=== PATIENT | female | born 1995 | race Caucasian/White ===

== ENCOUNTER 2020-03-04 14:29 | Outpatient (REF) | payer MEDICAID, SELFPAY | END 2020-03-04 14:30 | disposition home or self-care (01) | LOC: HO.LAB 14:29 | PROVIDERS: Visit Provider Internal Medicine | DX: Z20.822 Contact with and (suspected) exposure to COVID-19 (principal) | CPT/HCPCS: 36415; C9803; U0003 ==

== ENCOUNTER 2020-03-23 14:27 | Outpatient (REF) | payer MEDICAID, SELFPAY | END 2020-03-23 14:28 | disposition home or self-care (01) | LOC: HO.LAB 14:27 | PROVIDERS: Visit Provider Internal Medicine | DX: Z20.822 Contact with and (suspected) exposure to COVID-19 (principal) | CPT/HCPCS: 36415; C9803; U0003; U0005 ==

== ENCOUNTER 2022-12-08 15:43 | Emergency (ER) | payer OTHER, SELFPAY ==
--- NOTE | ~2022-12-08 | CT_ITS ---
EXAMINATION: CT head/brain wo IV con CLINICAL INFORMATION: Reason for Exam headache, dizziness COMPARISON: None. TECHNIQUE: Contiguous axial imaging was performed from the skull base to vertex without intravenous contrast. Sagittal and coronal reformatted images were obtained. This CT examination was performed using dose optimization techniques as appropriate, variously including the following: * Automated exposure control * Adjustment of mA and/or kV according to patient size (this includes techniques or standardized protocols for targeted exams where dose is matched to indication/reason for exam; i.e. extremities or head) Use of iterative reconstruction technique DLP: 758.72 mGy-cm FINDINGS: No acute osseous or soft tissue abnormality. The mastoid air cells and visualized portions of the paranasal sinuses are well aerated. There is no evidence of acute intracranial hemorrhage or territorial infarction. No abnormal mass effect or midline shift is seen. Berrios to white matter differentiation is well preserved. No extra-axial fluid collections are identified. No hydrocephalus. No significant volume loss. There is no abnormal attenuation within the brain parenchyma. CT/CT head/brain wo IV con IMPRESSION: No acute intracranial abnormality including hemorrhage, mass effect, hydrocephalus, or acute territorial edematous infarction.
--- NOTE | 2022-12-08 15:45 | ECG_ITS ---
Test Reason : CHEST PAIN Blood Pressure : / mmHG Vent. Rate : 079 BPM Atrial Rate : 079 BPM P-R Int : 158 ms QRS Dur : 084 ms QT Int : 392 ms P-R-T Axes : 048 027 045 degrees QTc Int : 449 ms Normal sinus rhythm with sinus arrhythmia Normal ECG No previous ECGs available Referred By: Generic ED Physician Electronically Signed By:RONAK BRICEÑO MD
--- NOTE | 2022-12-08 15:50 | MHC.EDTECH ---
Patient ekg taken in triage and was read by Provider .
[2022-12-08 15:53] VITALS: BP 140/78; PULSE 84; RESP 20; TEMP 36.2; O2SAT 100; BMI 38.1
--- NOTE | 2022-12-08 15:53 | ED_ITS ---
HPI - General Adult General Chief complaint: Chest Pain Stated complaint: chest pain,dizziness Time Seen by Provider: 12/08/22 18:38 Source: patient Mode of arrival: ambulatory Limitations: no limitations History of Present Illness HPI narrative: 27 year old female with PMH of anemia per patient, presents for ongoing dizziness and chest pressure. She went to [facility] ED twice for this, the first time was 12/04. Patient reports she had an elevated D dimer but negative CTA scan of the chest and was discharged with meclizine. She states this has not been helping. She states her dizziness has been going on for 1 week and occurs constantly throughout the day with movements. She denies vomiting or syncope. She denies unsteadiness, weakness, vision changes. She reports nausea and headache frequently. She states her chest pressure is not worsening or improving and occurs sporadically during the day. She denies difficulty breathing, leg edema, palpitations, or cough. She denies being in a long car ride or plane recently and denies OCPs. Patient states she does not drink much during the day, only a few sips here and then and occasional slushies. Patient reports that she tried to follow-up with her PCP who instructed her to go to a different ER Related Data Previous Rx's Medication Instructions Recorded amoxicillin 500 mg tablet 500 mg PO TID #30 tabs 12/08/22 Allergies Allergy/AdvReac Type Severity Reaction Status Date / Time No Known Allergies Allergy Verified 12/08/22 15:55 Review of Systems 2 Constitutional: Constitutional: Denies chills, Denies fever(s) and Reports headache(s) Eyes: Eyes: Denies blurry vision, Denies change in vision, Denies floaters and Denies seeing flashes ENT: Reports Normal hearing present, Reports vertigo, Reports dizziness, Denies otalgia and Reports headache(s) Cardiovascular: Cardiovascular: Reports chest pain, Denies Epigastric Pain, Denies syncope, Denies leg edema, Reports lightheadedness, Denies Loss of Consciousness, Denies radiating jaw, neck or arm pain and Denies dyspnea Respiratory: Respiratory: Denies cough and Denies dyspnea Gastrointestinal: Gastrointestinal: Denies abdominal pain, Denies diarrhea, Reports nausea and Denies vomiting Neurologic: Reports Normal hearing present, Reports vertigo, Reports dizziness, Denies syncope and Reports headache(s) [facility] Social History Social History Alcohol intake: current Smoked in Last 30 Days: No Use of substances other than those prescribed or required for medical reasons: No Advance Directives: No Advance Directives Information Provided: No Physical Exam ED Vital Signs: Vital Signs - 24 hr 12/08/22 15:53 12/08/22 18:33 12/08/22 19:49 Temperature 97.2 F Pulse Rate 84 77 77 Respiratory Rate 20 20 13 Blood Pressure 140/78 H 123/65 118/73 Pulse Oximetry 100 100 98 Oxygen Delivery Method Room Air Room Air Room Air BMI result Body Mass Index 38.1 Const General: cooperative, comfortable and no acute distress Orientation/consciousness: patient oriented x3 Limitations: no limitations HENMT Head: Yes normocephalic and Yes atraumatic Ears: hearing grossly normal bilaterally, external ears normal, right TM abnormal (fluid behind TM) and EAC's normal Throat: Yes posterior oropharynx normal Resp Effort & Inspection: normal respiratory effort and able to speak in complete sentences Auscultation: clear to auscultation bilaterally Cardio Rate: regular rate Rhythm: regular rhythm Neuro General: patient oriented x3 Cranial nerves: Yes CN's II-XII intact bilaterally and Yes Normal hearing present Motor exam (neuro): 5/5 motor strength present throughout Extrem General: Yes normal to inspection and No edema Course Course Course Narrative: This is an RME: Additional HPI, ROS, PE not included below will be deferred to primary provider. 27 year old female presents w/ cp, headache, near syncopal episodes x1 week. Was seen at [facility] 2X w/ negative workups. Plan- labs, urine, ekg Reevaluation(s) Reevaluation #1: Patient reports significant improvement in her symptoms. CT scan was unremarkable. Will discharge the patient with Reglan and she will follow-up with her PCP Time: 22:14 Medications Administered Discontinued Medications Generic Name Dose Route Start Last Admin Trade Name Freq PRN Reason Stop Dose Admin Al Hydroxide/Mg Hydroxide 30 ml 12/08/22 20:06 12/08/22 20:29 Magnesium Hydrox/Alum Hydrox 30 Ml Oral.Susp PO 12/08/22 20:07 30 ml ONCE ONE Administration Sodium Chloride 1,000 mls @ 999 mls/hr 12/08/22 19:45 12/08/22 20:50 Ns IV 12/08/22 20:45 Infused .Q1H1M STEPHANIE Infusion Ketorolac Tromethamine 30 mg 12/08/22 19:43 12/08/22 19:49 Ketorolac Tromethamine 30 Mg/Ml Vial IVPUSH 12/08/22 19:44 30 mg ONCE ONE Administration Lidocaine HCl 15 ml 12/08/22 20:06 12/08/22 20:29 Lidocaine Hcl Viscous 2 % 15 Ml Solution MUCOUS MEM 12/08/22 20:07 15 ml ONCE ONE Administration Metoclopramide HCl 10 mg 12/08/22 19:43 12/08/22 19:49 Metoclopramide Hcl 10 Mg/2 Ml Vial IVPUSH 12/08/22 19:44 10 mg ONCE ONE Administration Ondansetron HCl 4 mg 12/08/22 20:06 12/08/22 20:29 Ondansetron Odt 4 Mg Tab.Rapdis TRANSLINGU 12/08/22 20:07 4 mg ONCE ONE Administration Medical Decision Making Medical Decision Making [facility] Narrative: 27-year-old female presents for evaluation of headache, chest pressure. She reports that she has had a large negative cardiac workup at [facility] including CT angiography of the chest. Her EKG and labs today are unremarkable. She describes her chest pain as ?heartburn symptoms. ? we will treat with GI cocktail. The patient has been trying to follow-up as an outpatient but her doctor appears to seen to concern for acute issues. I discussed the patient that I have a low suspicion for intracranial pathology as her neurologic exam is benign but offered a CT scan which she agreed to undergo. She does have evidence of acute right otitis media which could explain some of her symptoms. Differential Diagnosis Differential Diagnoses: The differential diagnosis associated with the presentation includes peripheral vertigo central vertigo less likely anxiety dehydration ACS less likely Lab Data [facility] Lab Attestation statement: I reviewed the patient's lab results. No leukocytosis or anemia. Normal platelet count. No electrolyte abnormalities 12/08/22 16:03 12/08/22 16:03 Labs: Lab Results 12/08/22 Range/Units 16:03 WBC 7.6 (4.8-10.8) X10*3/uL RBC 4.96 (4.20-5.50) X10*6/uL Hgb 12.6 (12.0-16.0) g/dl Hct 39.9 (37.0-47.0) % MCV 80.4 (80.0-98.0) fL MCH 25.4 L (27.0-33.0) pg MCHC 31.6 (31.0-35.0) g/dl RDW 14.9 (11.0-16.0) % Plt Count 313 (160-400) X10*3/uL MPV 10.4 (9.4-12.3) fL Immature Gran % (Auto) 0.3 (0.0-0.4) % Neut % (Auto) 55.5 (45-73) % Lymph % (Auto) 35.5 (20-40) % [place] % (Auto) 6.4 (2-11) % Eos % (Auto) 2.0 (0-4) % Baso % (Auto) 0.3 (0-2) % Lymph # (Auto) 2.7 (1.2-4.9) X10*3/uL [place] # (Auto) 0.5 (0.1-1.2) X10*3/uL Eos # (Auto) 0.2 (0.0-0.4) X10*3/uL Baso # (Auto) 0.0 (0.0-0.2) X10*3/uL Abs Immat Gran (auto) 0.02 (0.00-0.03) X10*3/uL Absolute Neuts (auto) 4.3 (2.0-8.3) x10*3/uL Absolute Nucleated RBC 0.000 (0.0-0.012) X10*3/uL Nucleated RBC % (auto) 0.0 (0.0-0.2) /100WBC Sodium 139 (135-145) mmol/L Potassium 3.7 (3.3-5.1) mmol/L Chloride 108 (96-108) mmol/L Carbon Dioxide 26 (22-29) mmol/L Anion Gap 9 L (12-20) BUN 11 (9-16) mg/dL Creatinine 0.72 (0.5-1.4) mg/dL Estim Creat Clear Calc 161.6 Estimated GFR > 60 Random Glucose 94 (60-115) mg/dL Calcium 9.9 (8.4-10.2) mg/dL Magnesium 2.1 (1.6-2.6) mg/dL Total Bilirubin 0.3 (0.0-1.0) mg/dL AST 71 H (5-31) U/L ALT 116 H (0-31) U/L Alkaline Phosphatase 79 (39-117) U/L Troponin I High Sens < 2.7 (<3.5-17.0) ng/L Total Protein 7.7 (6.5-8.0) g/dL Albumin 4.0 (3.5-5.0) g/dL Beta HCG, Quant < 2 mIU/mL Independent Interpretation I performed an independent interpretation of an: EKG (Normal sinus rhythm with sinus arrhythmia. Ventricular rate 79 beats per minute. No ectopy or ischemic changes) and CT Scan (Agree with Radiology, no acute intracranial abnormality) Radiology Impression Discussion of test interpretation with radiology: I have reviewed the radiologist's reading. (No acute intracranial abnormality) Discharge Plan Discharge Clinical Impression: Otitis media, Acute headache, Chest pain Patient Disposition: Home, Self-Care Instructions: Chest Pain (ED), Acute Headache (ED) Additional Instructions: Your workup in the emergency department today was reassuring. You do appear to have an ear infection on the right. Take the antibiotics as prescribed. Follow-up with your primary doctor Hydrate well Prescriptions: New amoxicillin 500 mg tablet 500 mg PO TID Qty: 30 0RF
[2022-12-08 16:07] LABS: MANUAL DIFF FLAG NO
[2022-12-08 16:08] LABS: Basophils Percent Auto 0.3 % (0-2); Eosinophils Absolute Auto 0.2 X10*3/uL (0.0-0.4); Hematocrit 39.9 % (37.0-47.0); Hemoglobin 12.6 g/dl (12.0-16.0); Imm Gran Abs Auto 0.02 X10*3/uL (0.00-0.03); Imm Gran Pct Auto 0.3 % (0.0-0.4); Lymphocytes Absolute Auto 2.7 X10*3/uL (1.2-4.9); Lymphocytes Percent Auto 35.5 % (20-40); Mean Corpuscular HGB Conc 31.6 g/dl (31.0-35.0); Mean Corpuscular Hemoglobin 25.4 pg (27.0-33.0); Mean Corpuscular Volume 80.4 fL (80.0-98.0); Mean Platelet Volume 10.4 fL (9.4-12.3); Monocytes Absolute Auto 0.5 X10*3/uL (0.1-1.2); Monocytes Percent Auto 6.4 % (2-11); Neutrophils Absolute Auto 4.3 x10*3/uL (2.0-8.3); Neutrophils Percent Auto 55.5 % (45-73); Platelet Count 313 X10*3/uL (160-400); Red Blood Count 4.96 X10*6/uL (4.20-5.50); Red Cell Distribution Width 14.9 % (11.0-16.0); White Blood Count 7.6 X10*3/uL (4.8-10.8)
[2022-12-08 16:30] LABS: Alanine Aminotransferase 116 U/L (0-31); Alkaline Phosphatase 79 U/L (39-117); Anion Gap 9 (12-20); Aspartate Amino Transferase 71 U/L (5-31); Bilirubin Total 0.3 mg/dL (0.0-1.0); Blood Urea Nitrogen 11 mg/dL (9-16); Calcium 9.9 mg/dL (8.4-10.2); Carbon Dioxide 26 mmol/L (22-29); Chloride 108 mmol/L (96-108); Creatinine Clr Calc Pharmacy 161.6; Estimated Glomerular Filt Rate > 60; Glucose Random 94 mg/dL (60-115); HCG Quantitative < 2 mIU/mL; Magnesium 2.1 mg/dL (1.6-2.6); Potassium 3.7 mmol/L (3.3-5.1); Sodium 139 mmol/L (135-145); Total Protein 7.7 g/dL (6.5-8.0); Troponin-I High Sensitivity < 2.7 ng/L (<3.5-17.0)
[2022-12-08 18:33] VITALS: BP 123/65; PULSE 77; RESP 20; O2SAT 100
--- NOTE | 2022-12-08 19:37 | PC.NURSE ---
care assumed of patient at this time
[2022-12-08 19:49] VITALS: BP 118/73; PULSE 77; RESP 13; O2SAT 98
[2022-12-08] MEDS: Metoclopramide HCl 10 MG/2 ML VIAL IVPUSH (19:49)
[2022-12-08] MEDS: 0.9 % Sodium Chloride 1,000 ML 999 ML IV (19:49)
[2022-12-08] MEDS: Ketorolac Tromethamine 30 MG/ML VIAL IVPUSH (19:49)
[2022-12-08] MEDS: Ondansetron ODT 4 MG TAB.RAPDIS TRANSLINGU (20:29)
[2022-12-08] MEDS: Lidocaine HCl Viscous 2 % 15 ML SOLUTION MUCOUS MEM (20:29)
[2022-12-08] MEDS: Magnesium Hydrox/Alum Hydrox 30 ML ORAL.SUSP PO (20:29)
[2022-12-08 22:00] VITALS: BP 104/51; PULSE 75; RESP 14; O2SAT 98
== END 2022-12-08 22:25 | disposition home or self-care (01) ==
PROVIDERS: Physician Assistant; Emergency Provider Student in an Organized Health Care Education/Training Program; PCP Pediatrics
DX: R07.89 Other chest pain (principal); H66.93 Otitis media, unspecified, bilateral; R42 Dizziness and giddiness; R51.9 Headache, unspecified; R11.2 Nausea with vomiting, unspecified; Z79.899 Other long term (current) drug therapy
CPT/HCPCS: 36415; 70450; 80053; 83735; 84484; 84702; 85025; 93005; 96361; 96374; 96375; 99284; 99285; J1885; J2765

== ENCOUNTER 2023-04-17 23:29 | Observation (INO) | payer OTHER, SELFPAY ==
--- NOTE | ~2023-04-17 | CT_ITS ---
EXAMINATION: CT ABDOMEN AND PELVIS WITH CONTRAST CLINICAL INFORMATION: Periumbilical/right lower quadrant pain. COMPARISON: None available. TECHNIQUE: Multidetector volumetric images were obtained from the superior aspect of the liver through the pubic symphysis following administration 85 mL of Omnipaque 350 intravenous contrast. Sagittal and coronal reformatted images were obtained on the technologist's workstation. Oral contrast: No This CT examination was performed using dose optimization techniques as appropriate, variously including the following: *Automated exposure control *Adjustment of mA and/or kV according to patient size (this includes techniques or standardized protocols for targeted exams where dose is matched to indication/reason for exam; i.e. extremities or head) *Use of iterative reconstruction technique DLP: 866 mGy-cm FINDINGS: LUNG BASES: The visualized lung bases are unremarkable. LIVER, GALLBLADDER, AND BILIARY TREE: The liver is of diminished attenuation. No focal liver lesions are seen. There is no intrahepatic biliary duct dilatation. There has been a prior cholecystectomy. PANCREAS: Unremarkable. SPLEEN: Unremarkable. ADRENAL GLANDS: Unremarkable. KIDNEYS AND URETERS: The kidneys are normal in size, shape, and attenuation. No hydronephrosis, hydroureter, or calculi seen. No perinephric stranding. BLADDER: Unremarkable. GASTROINTESTINAL TRACT: The small and large bowel are unremarkable. The appendix is dilated up to 1.3 cm with a proximal appendicolith and ABDOMINAL WALL: No significant hernia is appreciated. LYMPH NODES: Normal. VASCULAR: Unremarkable. PELVIC VISCERA: Unremarkable. OSSEOUS STRUCTURES: There is mild lower lumbar disc degenerative change. CT/CT abdomen pelvis w IV con IMPRESSION: 1. Findings consistent with acute appendicitis. 2. Hepatic steatosis. Fleischner guidelines were followed.
[2023-04-17 23:47] VITALS: BP 144/86; PULSE 92; RESP 18; TEMP 36.6; O2SAT 98; BMI 38.1
[2023-04-17] MEDS: Ondansetron ODT 4 MG TAB.RAPDIS TRANSLINGU (23:54)
[2023-04-18] VITALS (23 sets, daily range): BP systolic 100–129; BP diastolic 45–77; PULSE 62–89; RESP 11–21; TEMP 36.1–37.2; O2SAT 93–100; BMI 39.0
[2023-04-18 00:38] LABS: MANUAL DIFF FLAG NO
[2023-04-18 00:45] LABS: Basophils Percent Auto 0.2 % (0-2); Eosinophils Percent Auto 0.1 % (0-4); Hematocrit 41.9 % (37.0-47.0); Hemoglobin 13.3 g/dl (12.0-16.0); Imm Gran Abs Auto 0.09 X10*3/uL (0.00-0.03); Imm Gran Pct Auto 0.5 % (0.0-0.4); Lymphocytes Absolute Auto 2.4 X10*3/uL (1.2-4.9); Lymphocytes Percent Auto 14.3 % (20-40); Mean Corpuscular HGB Conc 31.7 g/dl (31.0-35.0); Mean Corpuscular Hemoglobin 26.5 pg (27.0-33.0); Mean Corpuscular Volume 83.6 fL (80.0-98.0); Mean Platelet Volume 9.7 fL (9.4-12.3); Monocytes Absolute Auto 0.6 X10*3/uL (0.1-1.2); Monocytes Percent Auto 3.6 % (2-11); Neutrophils Absolute Auto 13.5 x10*3/uL (2.0-8.3); Neutrophils Percent Auto 81.3 % (45-73); Platelet Count 333 X10*3/uL (160-400); Red Blood Count 5.01 X10*6/uL (4.20-5.50); Red Cell Distribution Width 14.9 % (11.0-16.0); White Blood Count 16.6 X10*3/uL (4.8-10.8)
[2023-04-18 01:09] LABS: Alanine Aminotransferase 84 U/L (0-31); Albumin Level 4.1 g/dL (3.5-5.0); Alkaline Phosphatase 89 U/L (39-117); Anion Gap 12 (12-20); Aspartate Amino Transferase 40 U/L (5-31); Bilirubin Total 0.5 mg/dL (0.0-1.0); Blood Urea Nitrogen 10 mg/dL (9-16); Calcium 9.5 mg/dL (8.4-10.2); Carbon Dioxide 23 mmol/L (22-29); Chloride 109 mmol/L (96-108); Creatinine Clr Calc Pharmacy 159.5; Estimated Glomerular Filt Rate > 60; Glucose Random 144 mg/dL (60-115); HCG Quantitative < 2 mIU/mL; Lipase 16 U/L (8-78); Potassium 4.2 mmol/L (3.3-5.1); Sodium 140 mmol/L (135-145); Total Protein 8.1 g/dL (6.5-8.0)
[2023-04-18 01:41] LABS: Appearance Urine Clear; Color Urine Yellow; Glucose Urine UA Negative (Negative); Leukocyte Esterase Urine Negative (Negative); Nitrite Urine Negative (Negative); PH 8.5 (5.0-9.0); Specific Gravity - Urine 1.025 (1.005-1.025); UMIC TRIGGER UACC YES; Urine Blood Small (1+) (Negative); Urine Ketones 15 mg/dL (Negative); Urine Protein Trace mg/dL (Neg-Trace)
[2023-04-18 01:47] LABS: Bacteria Urine Trace (None Seen); Hyaline Casts Urine 0-2 /LPF (0-2); WBC Urine 0-5 /HPF (0-5)
--- NOTE | 2023-04-18 02:56 | MHC.EDTECH ---
THIS PCT JUST ASSUMED CARE OF PATIENT ,VITALS ,PATIENT RESTING IN BED .
[2023-04-18] MEDS: ondansetron HCL 4 MG/2 ML VIAL IVPUSH (03:47)
[2023-04-18] MEDS: Ketorolac Tromethamine 30 MG/ML VIAL 15 MG IVPUSH (03:47)
[2023-04-18] MEDS: 0.9 % Sodium Chloride 1,000 ML 999 ML IV (03:49)
[2023-04-18] MEDS: iohexoL 350 MG/ML 100 ML INFUS..BTL 85 ML IV (03:58)
--- NOTE | 2023-04-18 04:12 | ED.NAVMDI ---
HPI - Nausea/Vomiting/Diarrhea General Chief complaint: Nausea/Vomiting/Diarrhea Stated complaint: gen med Time Seen by Provider: 04/18/23 02:35 Source: patient and family Mode of arrival: ambulatory History of Present Illness HPI Narrative: 27-year-old female without significant past medical history but is status post cholecystectomy 2 years ago and presents with periumbilical/right lower quadrant pain that has been associated with vomiting as well as diarrhea that started at approximately 19:00 this evening. Patient reports chills. Related Data Previous Rx's Medication Instructions Recorded amoxicillin 500 mg tablet 500 mg PO TID #30 tabs 12/08/22 Allergies Allergy/AdvReac Type Severity Reaction Status Date / Time No Known Allergies Allergy Verified 04/17/23 23:46 Review of Systems Review of Systems: Pertinent positives and negatives as stated in HPI PMFSH Past Medical History Source: nursing notes reviewed Social History Social History Alcohol intake: current Advance Directives: No Advance Directives Information Provided: No Physical Exam Vital Signs: Vital Signs: Last Vital Signs Temp 98.9 F 04/18/23 04:20 Pulse 89 04/18/23 04:20 Resp 16 04/18/23 04:20 BP 113/66 04/18/23 04:20 Pulse Ox 98 04/18/23 04:20 O2 Del Method Room Air 04/18/23 04:20 BMI result Body Mass Index 38.1 VITAL SIGNS: Reviewed. GENERAL: Elevated BMI, Well developed, well nourished, in no acute distress. HEAD: Normocephalic/atraumatic EYES: PERRLA, EOMI EARS: Ext canals without abnormality NOSE: Nares patent bilateral OROPHARYNX: no oral lesions noted, posterior pharynx clear NECK: Supple, no adenopathy LUNGS: Normal breath sounds. No adventitious sounds or accessory muscle use. SpO2<97> CARDIOVASCULAR: Regular rate and rhythm without noted murmurs ABDOMEN: Soft, periumbilical discomfort but pain maximal in right lower quadrant, non-distended with bowel sounds. MUSCULOSKELETAL: No tenderness, deformities, or effusions noted on gross inspection. EXTREMITIES: No cyanosis, clubbing or edema. SKIN: Inspection of the skin reveals no rashes NEUROLOGIC: Alert and oriented x 4. Strength and sensation to light touch were grossly intact x 4. Medications Administered Discontinued Medications Generic Name Dose Route Start Last Admin Trade Name Freq PRN Reason Stop Dose Admin Sodium Chloride 1,000 mls @ 999 mls/hr 04/18/23 03:30 04/18/23 03:49 Ns IV 04/18/23 04:30 999 mls/hr .Q1H1M STEPHANIE Administration Iohexol 85 ml 04/18/23 03:57 04/18/23 03:58 Iohexol 350 Mg/Ml 100 Ml Infus..Btl IV 04/18/23 03:58 85 ml ONCE ONE Administration Ketorolac Tromethamine 15 mg 04/18/23 03:26 04/18/23 03:47 Ketorolac Tromethamine 30 Mg/Ml Vial IVPUSH 04/18/23 03:27 15 mg ONCE ONE Administration Ondansetron HCl 4 mg 04/17/23 23:51 04/17/23 23:54 Ondansetron Odt 4 Mg Tab.Rapdis TRANSLINGU 04/17/23 23:52 4 mg ONCE ONE Administration Ondansetron HCl 4 mg 04/18/23 03:27 04/18/23 03:47 Ondansetron Hcl 4 Mg/2 Ml Vial IVPUSH 04/18/23 03:28 4 mg ONCE ONE Administration Medical Decision Making Medical Decision Making [facility] Narrative: 0315: 27-year-old female with history and clinical presentation, DDX: Pancreatitis, gastritis, viral gastroenteritis, appendicitis. I reviewed all investigations and hematologic indices are significant for leukocytosis and left shift but no anemia or thrombocytopenia. Chemistry rated disease negative for DAVID or electrolyte derangements but patient has chronically stable elevation of transaminases, lactic acid is noted to be 2.6 inpatient receiving 1 L of IV fluids and beta hCG is undetectable. Urinalysis is negative for UTI. 0515: CT scan significant for acute appendicitis and I discussed the case with on-call general surgery for admission. 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 Please see the discussion above 04/18/23 00:18 04/18/23 00:18 Labs: Lab Results 04/18/23 04/18/23 04/18/23 Range/Units 00:18 01:34 04:16 WBC 16.6 H (4.8-10.8) X10*3/uL RBC 5.01 (4.20-5.50) X10*6/uL Hgb 13.3 (12.0-16.0) g/dl Hct 41.9 (37.0-47.0) % MCV 83.6 (80.0-98.0) fL MCH 26.5 L (27.0-33.0) pg MCHC 31.7 (31.0-35.0) g/dl RDW 14.9 (11.0-16.0) % Plt Count 333 (160-400) X10*3/uL MPV 9.7 (9.4-12.3) fL Immature Gran % (Auto) 0.5 H (0.0-0.4) % Neut % (Auto) 81.3 H (45-73) % Lymph % (Auto) 14.3 L (20-40) % [place] % (Auto) 3.6 (2-11) % Eos % (Auto) 0.1 (0-4) % Baso % (Auto) 0.2 (0-2) % Lymph # (Auto) 2.4 (1.2-4.9) X10*3/uL [place] # (Auto) 0.6 (0.1-1.2) X10*3/uL Eos # (Auto) 0.0 (0.0-0.4) X10*3/uL Baso # (Auto) 0.0 (0.0-0.2) X10*3/uL Abs Immat Gran (auto) 0.09 H (0.00-0.03) X10*3/uL Absolute Neuts (auto) 13.5 H (2.0-8.3) x10*3/uL Absolute Nucleated RBC 0.000 (0.0-0.012) X10*3/uL Nucleated RBC % (auto) 0.0 (0.0-0.2) /100WBC Sodium 140 (135-145) mmol/L Potassium 4.2 (3.3-5.1) mmol/L Chloride 109 H (96-108) mmol/L Carbon Dioxide 23 (22-29) mmol/L Anion Gap 12 (12-20) BUN 10 (9-16) mg/dL Creatinine 0.73 (0.5-1.4) mg/dL Estim Creat Clear Calc 159.5 Estimated GFR > 60 Random Glucose 144 H (60-115) mg/dL Lactic Acid 2.6 H* (0.5-2.0) mmol/L Calcium 9.5 (8.4-10.2) mg/dL Total Bilirubin 0.5 (0.0-1.0) mg/dL AST 40 H (5-31) U/L ALT 84 H (0-31) U/L Alkaline Phosphatase 89 (39-117) U/L Total Protein 8.1 H (6.5-8.0) g/dL Albumin 4.1 (3.5-5.0) g/dL Lipase 16 (8-78) U/L Beta HCG, Quant < 2 mIU/mL Urine Color Yellow Urine Appearance Clear Urine pH 8.5 (5.0-9.0) Ur Specific [place] 1.025 (1.005-1.025) Urine Protein Trace (Neg-Trace) mg/dL Urine Glucose (UA) Negative (Negative) mg/dL Urine Ketones 15 (Negative) mg/dL Urine Blood Small (1+) H (Negative) Urine Nitrite Negative (Negative) Ur Leukocyte Esterase Negative (Negative) Urine RBC 3-5 H (0-2) /HPF Urine WBC 0-5 (0-5) /HPF Ur Squamous Epith Cells 6-10 (0-2) /HPF Urine Bacteria Trace (None Seen) Hyaline Casts 0-2 (0-2) /LPF Radiology Impression Discussion of test interpretation with radiology: I have reviewed the radiologist's reading. Radiologist Impression: Please see the discussion above External Record Review External record reviewed: Outpatient record, Prior outpatient labs and Prior outpatient radiology Critical Care Time Critical Care Time Critical Care Time: Yes Total Critical Care Time: 45 Attestation: I personally attest to this time spent taking care of the patient. Discharge Plan Discharge Clinical Impression: Acute appendicitis Patient Disposition: Admitted As Inpatient Prescriptions: No Action amoxicillin 500 mg tablet 500 mg PO TID Qty: 30 0RF
--- NOTE | 2023-04-18 04:21 | MHC.EDTECH ---
lactic acid and both sets of blood culture drawn and sent to lab ,Vitals taken .
[2023-04-18 04:44] LABS: Lactic Acid 2.6 mmol/L (0.5-2.0)
[2023-04-18] MEDS: Piperacillin Sodium/Tazobactam 3.375 GM in 0.9 % Sodium Chloride 50 ML IV (05:31)
[2023-04-18 06:20] LABS: Reflex Lactate? Lactic Acid Added
--- NOTE | 2023-04-18 06:50 | PC.NURSE ---
Pt A&Ox3, reports 10/10 constant lower ABD pain with N/V. Pt not able to keep any PO fluids down, sudden onset last night at 8pm. IV line placed, meds given per APR. Pt reports effectiveness to pain med given. Pt ambulated independently to with steady gait.
--- NOTE | 2023-04-18 06:52 | PC.NURSE ---
Dr. Jones at bedside.
[2023-04-18 06:56] LABS: ~Lactic Acid-LAB USE ONLY 1.4 mmol/L (0.5-2.0)
[2023-04-18] MEDS: fentaNYL citrate/PF 100 MCG/2 ML VIAL 25 MCG IVPUSH (07:12)
--- NOTE | 2023-04-18 09:42 | P.HPGS_ITS ---
History of Present Illness History of Present Illness Date of Service: 04/18/23 Chief complaint: gen med Narrative: Bucky Velasco is a 27 year old female with no significant PMH who developed abdominal pain yesterday afternoon. She reports she felt well until mid afternoon yesterday when she developed a diffuse, crampy gas like pain. She tried to have a bowel movement with no improvement. The pain the localized around her umbilicus and she developed nausea and vomiting. She therefore came to the ED for evaluation. Work up in the ED included CBC, BMP, LFTs which was significant for a leukocytosis of 16.6 and lactic acidosis of 2.[address] scan was obtained which showed a dilated, thickened appendix with appendicolith. Review of Systems Constitutional: Constitutional: Denies chills and Denies fever(s) ENT: Denies dizziness Cardiovascular: Cardiovascular: Denies chest pain and Denies dyspnea Respiratory: Respiratory: Denies cough and Denies dyspnea Gastrointestinal: Gastrointestinal: Reports as per HPI, Denies hematochezia and Denies hematemesis Genitourinary: Genitourinary: Denies dysuria Integumentary/Breasts: Skin/Breast: Denies rash and Denies jaundice Neurologic: Denies dizziness [facility] Social History Social History Alcohol intake: current Alcohol intake frequency: holidays/special occasions only Smoked in Last 30 Days: No Use of substances other than those prescribed or required for medical reasons: No Advance Directives: No Advance Directives Information Provided: No Patient : No Meds Allergies Allergy/AdvReac Type Severity Reaction Status Date / Time No Known Allergies Allergy Verified 04/17/23 23:46 Home Medications Medication Instructions Recorded Confirmed Last Taken Type No Known Home Meds 04/18/23 04/18/23 Unknown History Physical Exam Vital Signs: Vital Signs: Last Vital Signs Temp 98.3 F 04/18/23 06:24 Pulse 76 04/18/23 07:14 Resp 17 04/18/23 07:14 BP 109/57 L 04/18/23 07:14 Pulse Ox 98 04/18/23 07:14 O2 Del Method Room Air 04/18/23 07:14 BMI result Body Mass Index 38.1 Const: General: comfortable, no acute distress and alert Orientation/consciousness: patient oriented x3 Resp: Effort & Inspection: normal respiratory effort GI: Other: corpulent abdomen Inspection: No distended Palpation (GI): Soft to palpation, Tenderness to palpation present (GI) in the RLQ and periumbilically; Rovsing's sign negative, no guarding and not rigid Percussion: Yes normal to percussion Skin: General skin exam: no rashes or lesions noted Neuro: General: patient oriented x3 and moves all extremities Results Results Labs: Short CBC 04/18/23 Range/Units 00:18 WBC 16.6 H (4.8-10.8) X10*3/uL Hgb 13.3 (12.0-16.0) g/dl Hct 41.9 (37.0-47.0) % Plt Count 333 (160-400) X10*3/uL BMP 04/18/23 00:18 Sodium 140 Potassium 4.2 Chloride 109 H Carbon Dioxide 23 BUN 10 Creatinine 0.73 Calcium 9.5 Liver Function 04/18/23 Range/Units 00:18 Total Bilirubin 0.5 (0.0-1.0) mg/dL AST 40 H (5-31) U/L ALT 84 H (0-31) U/L Alkaline Phosphatase 89 (39-117) U/L Albumin 4.1 (3.5-5.0) g/dL Urine 04/18/23 Range/Units 01:34 Urine Color Yellow Urine Appearance Clear Urine pH 8.5 (5.0-9.0) Ur Specific [place] 1.025 (1.005-1.025) Urine Protein Trace (Neg-Trace) mg/dL Urine Glucose (UA) Negative (Negative) mg/dL Abdomen CT scan report/results: report reviewed and image reviewed Assessment and Plan (1) Acute appendicitis: Status: Acute Plan 27 year old female with 1 day history of abdominal pain, nausea/vomiting now more localized to her umbilicus/RLQ with leukocytosis and CT scan demonstrating dilated, thickened appendix with appendicolith suggestive of acute appendicitis. She is admitted to the surgical service for further treatment of the acute appendicitis. Given the presence of the appendicolith, it was recommended to proceed with laparoscopic appendectomy, possible open. Risks, benefits, alternatives of laparoscopic possible open appendectomy were reviewed with the patient and included but not limited to bleeding, infection, numbness, pain, scarring, bowel or bladder injury or leak and the patient wishes to proceed. She has been added onto the OR schedule for today. Cont NPO, IVF. Quality Stroke Does the patient have a stroke diagnosis?: No VTE Prior VTE?: No VTE Risk Level:: Surgical - low VTE Device Contraindication: N/A - Device Ordered VTE Drug Contraindication: Treatment Not Indicated Procedures Date of Service Date of Service: 04/18/23
[2023-04-18] MEDS: Lactated Ringers 1,000 ML 100 ML IVCONT ×2 (10:41→19:48)
--- NOTE | 2023-04-18 12:44 | HO.ANESPROP2 ---
PMFSH Active Problems Active Problems: All Active Problems (Updated 04/18/23 @ 05:19 by Lita Gauthier MD) Acute appendicitis (Acute) Surgical History History of Problems with Anesthesia: No Social History Social History Alcohol intake: current Alcohol intake frequency: does not drink Patient Tobacco Use Status: Never used Tobacco Smoked in Last 30 Days: No Second Hand Smoke Exposure: No Use of substances other than those prescribed or required for medical reasons: No Are you DNR?: No Advance Directives: No Advance Directives Information Provided: No Advance Directives on File: No Nutrition Risks: No Nutritional Risk Patient : No Meds Allergies Allergy/AdvReac Type Severity Reaction Status Date / Time No Known Allergies Allergy Verified 04/17/23 23:46 Active Medications: Current Medications Acetaminophen (Acetaminophen 325 Mg Tablet) 650 mg PO Q6H PRN PRN Reason: Pain, Mild (Pain Scale 1-3) Al Hydroxide/Mg Hydroxide (Magnesium Hydrox/Alum Hydrox 30 Ml Oral.Susp) 30 ml PO Q4H PRN PRN Reason: Heartburn/Nausea Hydromorphone HCl (Hydromorphone Hcl 1 Mg/Ml Syringe) 0.5 mg IVPUSH Q4H PRN; Protocol PRN Reason: Pain, Severe (Pain Scale 7-10) Lactated Ringer's (Lr) 1,000 mls @ 100 mls/hr IVCONT .Q10H [facility] Last Admin: 04/18/23 10:41 Dose: 100 mls/hr Ondansetron HCl (Ondansetron Hcl 4 Mg/2 Ml Vial) 4 mg IVPUSH Q8H PRN PRN Reason: Nausea and Vomiting Oxycodone HCl (Oxycodone Hcl Immed Release 5 Mg Tablet) 5 mg PO Q4H PRN PRN Reason: Pain, Moderate(Pain Scale 4-6) Sodium Chloride (0.9 % Sodium Chloride Flush 3 Ml Syringe) 3 ml IVFLUSH QSHIFT [facility] Home Medications Medication Instructions Recorded Confirmed Last Taken Type No Known Home Meds 04/18/23 04/18/23 Unknown History Exam Height,Weight and Vital Signs: Height 5 ft 9 in Weight 117.1 kg Last Vital Signs Temp 98.2 F 04/18/23 12:26 Pulse 73 04/18/23 12:26 Resp 16 04/18/23 12:26 BP 129/77 04/18/23 12:26 Pulse Ox 95 04/18/23 12:26 O2 Del Method Room Air 04/18/23 12:26 Pertinent Lab Results Pertinent Lab Results: Laboratory Tests 04/18/23 04/18/23 04/18/23 00:18 01:34 04:16 WBC 16.6 H RBC 5.01 Hgb 13.3 Hct 41.9 MCV 83.6 MCH 26.5 L MCHC 31.7 RDW 14.9 Plt Count 333 MPV 9.7 Immature Gran % (Auto) 0.5 H Neut % (Auto) 81.3 H Lymph % (Auto) 14.3 L Howard % (Auto) 3.6 Eos % (Auto) 0.1 Baso % (Auto) 0.2 Lymph # (Auto) 2.4 Howard # (Auto) 0.6 Eos # (Auto) 0.0 Baso # (Auto) 0.0 Abs Immat Gran (auto) 0.09 H Absolute Neuts (auto) 13.5 H Absolute Nucleated RBC 0.000 Nucleated RBC % (auto) 0.0 Sodium 140 Potassium 4.2 Chloride 109 H Carbon Dioxide 23 Anion Gap 12 BUN 10 Creatinine 0.73 Estim Creat Clear Calc 159.5 Estimated GFR > 60 Random Glucose 144 H Lactic Acid 2.6 H* Lactic Acid F/U @ 2Hr Calcium 9.5 Total Bilirubin 0.5 AST 40 H ALT 84 H Alkaline Phosphatase 89 Total Protein 8.1 H Albumin 4.1 Lipase 16 Beta HCG, Quant < 2 Urine Color Yellow Urine Appearance Clear Urine pH 8.5 Ur Specific [place] 1.025 Urine Protein Trace Urine Glucose (UA) Negative Urine Ketones 15 Urine Blood Small (1+) H Urine Nitrite Negative Ur Leukocyte Esterase Negative Urine RBC 3-5 H Urine WBC 0-5 Ur Squamous Epith Cells 6-10 Urine Bacteria Trace Hyaline Casts 0-2 04/18/23 06:43 WBC RBC Hgb Hct MCV MCH MCHC RDW Plt Count MPV Immature Gran % (Auto) Neut % (Auto) Lymph % (Auto) Howard % (Auto) Eos % (Auto) Baso % (Auto) Lymph # (Auto) Howard # (Auto) Eos # (Auto) Baso # (Auto) Abs Immat Gran (auto) Absolute Neuts (auto) Absolute Nucleated RBC Nucleated RBC % (auto) Sodium Potassium Chloride Carbon Dioxide Anion Gap BUN Creatinine Estim Creat Clear Calc Estimated GFR Random Glucose Lactic Acid Lactic Acid F/U @ 2Hr 1.4 Calcium Total Bilirubin AST ALT Alkaline Phosphatase Total Protein Albumin Lipase Beta HCG, Quant Urine Color Urine Appearance Urine pH Ur Specific [place] Urine Protein Urine Glucose (UA) Urine Ketones Urine Blood Urine Nitrite Ur Leukocyte Esterase Urine RBC Urine WBC Ur Squamous Epith Cells Urine Bacteria Hyaline Casts Airway Mallampati Class: II TM Dist: >3cm Neck ROM: Full Loose/Missing/Broken Teeth: No Heart: RRR Lungs: CTA Assessment and Plan Assessment Anesthesia Assessment: Anesthesia Plan Discussed and Chart Reviewed Final Anesthetic Review History of Problems with Anesthesia: No NPO: Yes ASA Class: II Final Preanesthetic Review: Meds/Allgs Chart Reviewed, Consent Obtained/Reviewed and Anes Risks/Benef Reviewed Patient Risk: Low Procedure Risk: Low Anesthetic Plan Anesthetic Plan: GA Disposition: Standard PACU
--- NOTE | 2023-04-18 15:27 | W.PM.OPN ---
Operative Note Operative Note Date of Service: 04/18/23 Narrative: Preoperative diagnosis: [] Acute appendicitis Postop diagnosis: [] The same Procedure [] laparoscopic appendectomy Surgeon: [] Robert Sock And Stocking Ironer: [] Krupa Type of Anesthesia: [] General Indication for surgery: [] Edematous inflamed appendix. No gross evidence of perforation. Findings: [] Patient brought to the operating room, placed on operative table supine position, after adequate level of general anesthesia was induced, the patient's abdomen which was quite corpulent was prepped and draped in usual sterile fashion. Using a supraumbilical curvilinear incision, Arnett technique was used to insufflate abdominal cavity to 15 mm of CO2. Lower midline and suprapubic ports were placed under direct laparoscopic view, and the patient placed in Trendelenburg position, and tilted to the left. Cecum and appendix were identified. Appendix was grasped and brought onto the field. It is mesentery was sequentially taken down using double firing of ligature device. Appendix was then transected at the cecal base using endoscopic NAV stapler. Specimen was placed in an Endo-Catch bag, a retrieved through the umbilical port. Abdominal cavity was copiously irrigated, and secured hemostasis. All ports were removed under direct laparoscopic view. Wounds were closed in the following manner; umbilical wound had its fascia reapproximated using interrupted 0 Vicryl sutures. Skin wounds were closed using subcuticular 4-0 Vicryl sutures followed by Steri-Strips and sterile dressings. Wounds were infiltrated 0.5% Marcaine at completion. Sponge, needle, and instrument counts reported correct. Patient tolerated the procedure well and emerged from anesthesia in stable condition. EBL minimal
[2023-04-18] MEDS: HYDROmorphone HCl 0.5 MG/0.5 ML SYRINGE 0.25 MG IVPUSH ×2 (16:05→16:12)
[2023-04-18] MEDS: oxyCODONE HCl Immed Release 5 MG TABLET PO ×2 (16:06→19:47)
[2023-04-18] MEDS: Ketorolac Tromethamine 15 MG/ML VIAL IVPUSH ×2 (17:39→21:19)
[2023-04-18] MEDS: 0.9 % Sodium Chloride Flush 3 ML SYRINGE IVFLUSH ×2 (17:40→19:47)
[2023-04-18] MEDS: Docusate Sodium 100 MG CAPSULE PO (19:47)
[2023-04-19 04:00] VITALS: BP 105/53; PULSE 66; RESP 18; TEMP 36.6; O2SAT 98
[2023-04-19] MEDS: oxyCODONE HCl Immed Release 5 MG TABLET PO (04:40)
[2023-04-19 07:13] VITALS: BP 113/73; PULSE 57; RESP 16; TEMP 37.2; O2SAT 99
--- NOTE | 2023-04-19 08:40 | PM.PNGS ---
Subjective Subjective Date of Service: 04/19/23 Interval history: C/o incisional pain. Medications not really helping. Did not eat much last night due to lack of appetite. Denies nausea. Has been OOB to bathroom. Physical Exam Vital Signs: Vital Signs: Last Vital Signs Temp 98.9 F 04/19/23 07:13 Pulse 57 04/19/23 07:13 Resp 16 04/19/23 07:13 BP 113/73 04/19/23 07:13 Pulse Ox 99 04/19/23 07:13 O2 Del Method Room Air 04/19/23 07:13 O2 Flow Rate 2 04/18/23 17:27 BMI result Body Mass Index 39.0 Const: General: comfortable, no acute distress and alert Orientation/consciousness: patient oriented x3 Resp: Effort & Inspection: normal respiratory effort GI: Inspection: No distended and Yes incision (dressing c/d/i) Palpation (GI): Soft to palpation, Tenderness to palpation present (GI) (mild incisional), no guarding and not rigid Skin: General skin exam: no rashes or lesions noted Neuro: General: patient oriented x3 and moves all extremities Objective Data Active Medications Acetaminophen (Acetaminophen 325 Mg Tablet) 650 mg PO Q6H PRN PRN Reason: Pain, Mild (Pain Scale 1-3) Al Hydroxide/Mg Hydroxide (Magnesium Hydrox/Alum Hydrox 30 Ml Oral.Susp) 30 ml PO Q4H PRN PRN Reason: Heartburn/Nausea Docusate Sodium (Docusate Sodium 100 Mg Capsule) 100 mg PO BID [facility] Last Admin: 04/18/23 19:47 Dose: 100 mg Documented By: JUANPABLO Hydromorphone HCl (Hydromorphone Hcl 1 Mg/Ml Syringe) 0.5 mg IVPUSH Q4H PRN; Protocol PRN Reason: Pain, Severe (Pain Scale 7-10) Lactated Ringer's (Lr) 1,000 mls @ 100 mls/hr IVCONT .Q10H [facility] Last Admin: 04/19/23 06:29 Dose: Not Given Documented By: JUANPABLO Non-Admin Reason: morning ADLS will connect when finished Ketorolac Tromethamine (Ketorolac Tromethamine 15 Mg/Ml Vial) 15 mg IVPUSH Q6H PRN PRN Reason: abdominal pain Last Admin: 04/18/23 21:19 Dose: 15 mg Documented By: JUANPABLO Melatonin (Melatonin 3 Mg Tablet) 6 mg PO BEDTIME PRN PRN Reason: Insomnia Ondansetron HCl (Ondansetron Hcl 4 Mg/2 Ml Vial) 4 mg IVPUSH Q8H PRN PRN Reason: Nausea and Vomiting Oxycodone HCl (Oxycodone Hcl Immed Release 5 Mg Tablet) 5 mg PO Q4H PRN PRN Reason: Pain, Moderate(Pain Scale 4-6) Last Admin: 04/19/23 04:40 Dose: 5 mg Documented By: JUANPABLO Sodium Chloride (0.9 % Sodium Chloride Flush 3 Ml Syringe) 3 ml IVFLUSH [facility] Last Admin: 04/18/23 19:47 Dose: 3 ml Documented By: JUANPABLO Labs 04/18/23 00:18 04/18/23 00:18 Microbiology Microbiology Results: Microbiology 04/18/23 04:16 Blood Culture - Preliminary Blood - Venous No growth after 24 hours. 04/18/23 04:18 Blood Culture - Preliminary Blood - Venous No growth after 24 hours. Procedures Date of Service Date of Service: 04/19/23 Progress Note: A&P Assessment and plan (1) Acute appendicitis: Status: Acute (2) S/P laparoscopic appendectomy: Status: Acute Plan POD #1 s/p lap appy for uncomplicated appendicitis. Having difficulty with pain control and has yet to eat. VSS. Pt clinically appearing well with benign abd exam with appropriate post op tenderness, clean/intact dressings. Will reassess later today- if tolerating solid diet with good pain control dc to home today. Patient comfortable with plan. Time Spent With Patient Time: Total time managing care of this patient today ____ minutes. Quality Stroke Does the patient have a stroke diagnosis?: No VTE Prior VTE?: No VTE Risk Level:: Surgical - low VTE Device Contraindication: N/A - Device Ordered VTE Drug Contraindication: Treatment Not Indicated
--- NOTE | 2023-04-19 09:02 | HO.POSTANES ---
Post Anesthesia Evaluation Post Anesthesia Evaluation Date of Service: 04/19/23 Vital Signs: Vital Signs Temp Pulse Resp BP Pulse Ox O2 Del Method 04/19/23 07:13 98.9 F 57 16 113/73 99 Room Air 04/19/23 04:00 97.9 F 66 18 105/53 L 98 Room Air 04/18/23 23:34 97.4 F 62 20 114/50 L 93 Room Air Anesthesia: General Endotracheal-GETA Mental Status: Awake Pain Control: Satisfactory Nausea/Vomiting: None Hydration: Adequate Anesthesia-Related Issues: No Anes. Related Issues
--- NOTE | 2023-04-19 09:08 | MHC.CM.PN ---
JESSICA 04/19/23, EMR REVIEWED, PT S/P LAP APPENDECTOMY, CM MET W/PT WHO REPORTS SHE LIVES W/HER 3 CHILDREN AGES 9MOS-7YRS, PT'S FATHER IS STAYING W/PT'S CHILDREN AND WILL ASSIST WHEN SHE GETS HOME, PT IS FULLY INDEP W/ALL CARE, DENIES USE OF DME/SERVICES AND GOAL FOR HOME IS HOME SELF CARE. PT VERIFIES PCP IS ABRAHAM DIOR, PT EDUCATED ON AND DECLINES TO COMPLETE A HCP. ANTIC PT WILL BE MEDICALLY CLEARED FOR DC TODAY HOME SELF CARE W/OUTPT FOLLOW UP W/DR [facility] AND FAMILY FOR TRANSPORT
[2023-04-19] MEDS: 0.9 % Sodium Chloride Flush 3 ML SYRINGE IVFLUSH ×2 (10:15→16:41)
[2023-04-19] MEDS: oxyCODONE HCl Immed Release 5 MG TABLET 10 MG PO (10:15)
[2023-04-19] MEDS: Docusate Sodium 100 MG CAPSULE PO ×2 (10:15→20:19)
[2023-04-19 12:00] VITALS: BP 99/56; PULSE 70; RESP 20; TEMP 36.3; O2SAT 94
[2023-04-19] MEDS: ondansetron HCL 4 MG/2 ML VIAL IVPUSH (12:47)
[2023-04-19 15:27] VITALS: BP 108/55; PULSE 76; RESP 20; TEMP 36.1; O2SAT 96
[2023-04-19] MEDS: Lactated Ringers 1,000 ML 100 ML IVCONT (16:41)
[2023-04-19 19:34] VITALS: BP 120/63; PULSE 68; RESP 18; TEMP 36.2; O2SAT 96
[2023-04-19] MEDS: Ketorolac Tromethamine 15 MG/ML VIAL IVPUSH (20:22)
[2023-04-19 23:07] VITALS: BP 116/58; PULSE 67; RESP 18; TEMP 36.3; O2SAT 95
[2023-04-20 04:00] VITALS: BP 109/61; PULSE 62; RESP 18; TEMP 36.4; O2SAT 98
[2023-04-20] MEDS: Lactated Ringers 1,000 ML 100 ML IVCONT (04:10)
[2023-04-20] MEDS: 0.9 % Sodium Chloride Flush 3 ML SYRINGE IVFLUSH ×2 (04:10→09:19)
[2023-04-20 07:11] VITALS: BP 128/69; PULSE 75; RESP 15; TEMP 36.2; O2SAT 97
[2023-04-20] MEDS: Docusate Sodium 100 MG CAPSULE PO (09:19)
[2023-04-20] MEDS: Ketorolac Tromethamine 15 MG/ML VIAL IVPUSH (09:19)
--- NOTE | 2023-04-20 09:47 | P.PNGS_ITS ---
Subjective Subjective Date of Service: 04/20/23 Interval history: Feels well this morning. Dizziness resolved. OOB and ambulating without difficulty. Voiding well. Pain better controlled. Tolerating solid diet. Physical Exam 2 Vital Signs: Vital Signs: Last Vital Signs Temp 97.2 F 04/20/23 07:11 Pulse 75 04/20/23 07:11 Resp 15 04/20/23 07:11 BP 128/69 04/20/23 07:11 Pulse Ox 97 04/20/23 07:11 O2 Del Method Room Air 04/20/23 07:11 O2 Flow Rate 2 04/18/23 17:27 BMI result Body Mass Index 39.0 Const: General: comfortable, no acute distress and alert O rientation/consciousness: patient oriented x3 Resp: Effort & Inspection: normal respiratory effort GI: Inspection: No distended and Yes incision (clean) Palpation (GI): Soft to palpation, Tenderness to palpation present (GI) (mild incisional), no guarding and not rigid Skin: General skin exam: no rashes or lesions noted Neuro: General: patient oriented x3 and moves all extremities Objective Data Active Medications Acetaminophen (Acetaminophen 325 Mg Tablet) 650 mg PO Q6H PRN PRN Reason: Pain, Mild (Pain Scale 1-3) Al Hydroxide/Mg Hydroxide (Magnesium Hydrox/Alum Hydrox 30 Ml Oral.Susp) 30 ml PO Q4H PRN PRN Reason: Heartburn/Nausea Docusate Sodium (Docusate Sodium 100 Mg Capsule) 100 mg PO BID [facility] Last Admin: 04/20/23 09:19 Dose: 100 mg Documented By: JOEL Hydromorphone HCl (Hydromorphone Hcl 1 Mg/Ml Syringe) 0.5 mg IVPUSH Q4H PRN; Protocol PRN Reason: Pain, Severe (Pain Scale 7-10) Lactated Ringer's (Lr) 1,000 mls @ 100 mls/hr IVCONT .Q10H [facility] Last Admin: 04/20/23 04:10 Dose: 100 mls/hr Documented By: MARCOS Ketorolac Tromethamine (Ketorolac Tromethamine 15 Mg/Ml Vial) 15 mg IVPUSH Q6H PRN PRN Reason: abdominal pain Last Admin: 04/20/23 09:19 Dose: 15 mg Documented By: HO.WILLIAC Melatonin (Melatonin 3 Mg Tablet) 6 mg PO BEDTIME PRN PRN Reason: Insomnia Ondansetron HCl (Ondansetron Hcl 4 Mg/2 Ml Vial) 4 mg IVPUSH Q8H PRN PRN Reason: Nausea and Vomiting Last Admin: 04/19/23 12:47 Dose: 4 mg Documented By: JESSE Oxycodone HCl (Oxycodone Hcl Immed Release 5 Mg Tablet) 10 mg PO Q4H PRN PRN Reason: Pain, Moderate(Pain Scale 4-6) Last Admin: 04/19/23 10:15 Dose: 10 mg Documented By: JESSE Sodium Chloride (0.9 % Sodium Chloride Flush 3 Ml Syringe) 3 ml IVFLUSH [facility] Last Admin: 04/20/23 09:19 Dose: 3 ml Documented By: BRIIAC Labs 04/18/23 00:18 04/18/23 00:18 Microbiology Microbiology Results: Microbiology 04/18/23 04:16 Blood Culture - Preliminary Blood - Venous No growth after 48 hours. 04/18/23 04:18 Blood Culture - Preliminary Blood - Venous No growth after 48 hours. Procedures Date of Service Date of Service: 04/20/23 Progress Note: A&P Assessment and plan (1) S/P laparoscopic appendectomy: Status: Acute (2) Acute appendicitis: Status: Acute Plan Doing well post op and comfortable on PO analgesics, tolerating diet. ABd benign with clean incisions, mild incisional tenderness. Feels ready for discharge to home today. F/u in office in 1 week. Patient comfortable with plan. Dc on colace. Time Spent With Patient Time: Total time managing care of this patient today ____ minutes. Quality Stroke Does the patient have a stroke diagnosis?: No VTE Prior VTE?: No VTE Risk Level:: Surgical - low VTE Device Contraindication: N/A - Device Ordered VTE Drug Contraindication: Treatment Not Indicated
--- NOTE | 2023-04-20 09:49 | P.DS_ITS ---
DS: Providers Provider Date of Service: 04/20/23 Date of admission: 04/18/23 09:38 Date of discharge: 04/20/23 Primary care physician: Osei Physician Attending physician on admission: David Jones Attending physician on discharge: David Jones DS: Diagnosis Discharge Diagnosis (1) S/P laparoscopic appendectomy: Status: Acute (2) Acute appendicitis: Status: Acute DS: Summary Hospital Course Hospital Course: HPI AT ADMISSION: Bucky Velasco is a 27 year old female with no significant PMH who developed abdominal pain yesterday afternoon. She reports she felt well until mid afternoon yesterday when she developed a diffuse, crampy gas like pain. She tried to have a bowel movement with no improvement. The pain the localized around her umbilicus and she developed nausea and vomiting. She therefore came to the ED for evaluation. Work up in the ED included CBC, BMP, LFTs which was significant for a leukocytosis of 16.6 and lactic acidosis of 2.[address] scan was obtained which showed a dilated, thickened appendix with appendicolith. HOSPITAL COURSE: She was admitted to the surgical service for further treatment of the acute appendicitis. It was recommended to proceed with laparoscopic appendectomy, possible open given the presence of appendicolith. She agreed and was added onto the OR schedule for that day. On 04/18/23, a laparoscopic appendectomy was performed by Dr. Jones without complication. The patient tolerated the procedure well. She had an uncomplicated but slow recovery course. She required 2 night stay for pain control and poor PO intake with nausea. On the day of discharge, she was tolerating a solid diet without nausea or vomiting. Her pain was controlled on PO analgesics. She was ambulating without difficulty. She began passing flatus. Her abdomen was benign with clean incisions and appropriate post op tenderness. She was discharged to home on 04/20/23 in stable condition. She is to follow up in the office in 1 week. Status at Discharge Functional status at discharge: independent ambulation Overall status at discharge: patient is progressing back to baseline Time Attestation Discharge Coordination Time (in mins): 25 Quality: Safe Use of Opioids Does Pt have an Active Cancer Diagnosis on the Problem List?: No Quality: Stroke Does the patient have a stroke diagnosis?: No Physical Exam Vital Signs: Vital Signs: Last Vital Signs Temp 97.2 F 04/20/23 07:11 Pulse 75 04/20/23 07:11 Resp 15 04/20/23 07:11 BP 128/69 04/20/23 07:11 Pulse Ox 97 04/20/23 07:11 O2 Del Method Room Air 04/20/23 07:11 O2 Flow Rate 2 04/18/23 17:27 BMI result Body Mass Index 39.0 Const: General: comfortable, no acute distress and alert Orienta tion/consciousness: patient oriented x3 Resp: Effort & Inspection: normal respiratory effort GI: Inspection: No distended and Yes incision (clean) Palpation (GI): Soft to palpation, Tenderness to palpation present (GI) (mild incisional), no guarding and not rigid Skin: General skin exam: no rashes or lesions noted Neuro: General: patient oriented x3 and moves all extremities DS: Data Data Completed and Pending Pending studies at discharge: Pending at discharge 04/18/23 13:43 Surgical [PTH] Routine Labs on day of discharge: Preliminary micro results at discharge 04/18/23 04:16 Blood Culture - Preliminary Blood - Venous No growth after 48 hours. 04/18/23 04:18 Blood Culture - Preliminary Blood - Venous No growth after 48 hours. Discharge Plan Discharge Anticipated Discharge Date/Time: 04/19/23 09:22 Patient Disposition: Home, Self-Care Discharge Diagnosis: acute appendicitis Referrals: David Jones MD [Physician] - 1 Week Physician,Unknown J [Primary Care Provider] - 1 Week Discharge Medications: New docusate sodium [Colace] 100 mg capsule 100 mg PO BID Qty: 30 0RF oxycodone 5 mg tablet 5 mg PO Q4H PRN (Reason: pain (scale score 7-10)) Qty: 24 0RF Rx Instructions: Partial Fill upon patient request. Discharge Orders: Discharge Order (Routine); Ordered 04/20/23 Ordered By: Lori Gentile Diet: Advance to usual diet Activity on Discharge: No heavy lifting Stand Alone Forms: Patient Portal Discharge page Activity Restrictions/Additional Instructions: Apply an ice pack for short intervals (20 minutes on, followed by at least 20 minutes off) for the first 2 days. Do not apply heat. Do not use creams, lotions, or topical antibiotics. These can cause infection or allergic reaction. Ok to shower 48 hours after your surgery. Remove dressings in 2 days and replace as needed. You have steri strips (small white cloth strips) covering your incision- these will fall off ~1 week. Follow up in office with Dr. Jones in 1 week. ([phone]) No heavy lifting (>10lbs) or strenuous activity! Call Your Doctor If: -Your temperature exceeds 101.5? F -You experience excessive pain or swelling -You have an unexpected reaction to medication -You have excessive bleeding -You experience continued vomiting/nausea -Your incision begins to separate -Your incision shows signs of infection such as increased redness, swelling, excessive pain, drainage (light blood or clear fluid is normal) or heat Care Plan Goals: Return to baseline health and resume normal activities following recovery period. Health Concerns: acute appendicitis Plan of Treatment: s/p lap appy f/u in office in 1 week Assessment: Doing well post op Discharge Date/Time: 04/20/23 09:50
--- NOTE | 2023-04-20 13:59 | MHC.CM.PN ---
PT MEDICALLY CLEARED FOR DC HOME SELF CARE, PT HAS ARRANGED TRANSPORT
== END 2023-04-20 09:50 | disposition home or self-care (01) ==
LOC: HO.ED 04-18 07:02 → HO.EDOVER 04-18 10:16 → HO.IMC 04-18 16:36
PROVIDERS: Surgery; Admitting Provider Physician Assistant Surgical; Emergency Provider Student in an Organized Health Care Education/Training Program; PCP Pediatrics; Visit Provider Physician Assistant Surgical
PROC: 0DTJ4ZZ Resection of Appendix, Percutaneous Endoscopic Approach (ICD-10-PCS; CPT 44970; principal; 2023-04-18 13:00)
DX: K35.80 Unspecified acute appendicitis (principal); R10.31 Right lower quadrant pain; Z90.49 Acquired absence of other specified parts of digestive tract; K76.0 Fatty (change of) liver, not elsewhere classified; R11.2 Nausea with vomiting, unspecified; R19.7 Diarrhea, unspecified; D72.829 Elevated white blood cell count, unspecified
CPT/HCPCS: 44970; 36415; 74177; 80053; 81001; 83605; 83690; 84702; 85025; 87040; 88304; 88313; 88341; 88342; 88360; 96361; 96365; 96375; 96376; 99222; 99285; J1100; J1170; J1885; J2250; J2371; J2405; J2543; J2704; J2795; J3010; J7120; Q9967

== ENCOUNTER → 2023-04-18 09:38 | Outpatient (BNV) | payer OTHER, SELFPAY | PROVIDERS: Admitting Provider Physician Assistant Surgical; Emergency Provider Student in an Organized Health Care Education/Training Program; Visit Provider Physician Assistant Surgical | DX: Z90.49 Acquired absence of other specified parts of digestive tract (principal); K35.80 Unspecified acute appendicitis | CPT/HCPCS: 44970; 99024; 99222 ==

== ENCOUNTER 2023-05-09 09:30 | Outpatient (AMB) | payer OTHER, SELFPAY ==
[2023-05-09 09:56] VITALS: BP 119/62; PULSE 84
--- NOTE | 2023-05-09 09:56 | MHC.OFFVIS ---
Intake Vital Signs 05/09/23 09:56 Weight 256 lb BP 119/62 Blood Pressure Location Rt brachial Position Sitting Pulse 84 Intake Visit Reasons: S/p appy Intake Note: Patient here s/p lap appy. Reports incisions healing well. SX: 04-18-23. 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 He has tolerating a diet. He is having regular bowel habits. She has no incisional issues or complaints. 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 Because of the very small size, negative margins, no adenopathy, and well-differentiated pathology, no further interventions were required. This was reviewed extensively with the patient. She will eventually need screening colonoscopies periodically. [facility] Social History Alcohol intake: current Alcohol intake frequency: does not drink Comment: counts correct Patient Tobacco Use Status: Never used Tobacco Second Hand Smoke Exposure: No service: No Physical Exam Vital Signs: Last Vital Signs Pulse 84 05/09/23 09:56 BP 119/62 05/09/23 09:56 GI Other: Abdomen is soft. Corpulent. All wounds clean dry and intact completely healed. Assessment & Plan Assessment & Plan (1) S/P laparoscopic appendectomy: Code(s): Z90.49 - Acquired absence of other specified parts of digestive tract Plan Plan as noted above. No strenuous activities. Patient will otherwise follow-up p.r.n.. Coding Level of Care Code Global (69439) Diagnoses S/P laparoscopic appendectomy Z90.49
== END 2023-05-09 10:03 | disposition home or self-care (01) ==
PROVIDERS: PCP Pediatrics; Visit Provider Surgery
DX: Z90.49 Acquired absence of other specified parts of digestive tract (principal)
CPT/HCPCS: 99024

== ENCOUNTER → 2023-05-09 09:30 | Outpatient (BNVA) | payer OTHER, SELFPAY | PROVIDERS: PCP Pediatrics; Visit Provider Surgery | DX: Z48.815 Encounter for surgical aftercare following surgery on the digestive system (principal); Z90.49 Acquired absence of other specified parts of digestive tract | CPT/HCPCS: 99212 ==